=== PATIENT | female | born 1955 | race Asian ===

== ENCOUNTER → 2017-05-11 | Outpatient (CLI) | END | disposition home or self-care (01) ==

== ENCOUNTER 2018-06-02 19:42 | Emergency (ER) | payer BC ==
[~2018-06-02] VITALS: Ht 152.4 cm; Wt 79.1 kg
[~2018-06-02 19:42] MED LIST: LEVO25TA PO
[2018-06-02 19:47] VITALS: Ht 152.4 cm; Wt 79.1 kg
--- NOTE | 2018-06-02 21:49 | ERD ---
ER Documentation Chief Complaint Chief Complaint head lac head and neck pain s/p fall onto concrete 06/01at 1800 no KO HPI 62-year-old female complaining of headache and neck pain after a fall yesterday. Patient states she tripped and fell at home, and hit her forehead on the concrete floor. She has sustained a skin wound on her forehead. States that he has now stopped bleeding. Denies LOC or vomiting after the fall. Patient has history of thyroid disease, but denies any other past medical history. Patient is not anticoagulant or antiplatelet medications. ROS All systems reviewed and are negative except as per history of present illness. 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 06/02/18 Reported Medications Levothyroxine Sodium* (Synthroid*) 25 Mcg Tablet, 25 MCG PO DAILY 11/23/11 Allergies Allergies: Coded Allergies: Penicillins (Verified Allergy, 11/23/11) Sulfa(Sulfonamide Antibiotics) (Verified Allergy, 11/23/11) PMhx/Soc History of Surgery: No Anesthesia Reaction: No Hx Neurological Disorder: No Hx Respiratory Disorders: No Hx Cardiac Disorders: No Hx Psychiatric Problems: No Hx Miscellaneous Medical Probl: Yes (HYPOTHYROID ) Hx Alcohol Use: No Hx Substance Use: No Hx Tobacco Use: No Physical Exam Vitals Vital Signs Date Temp Pulse Resp B/P (MAP) Pulse Ox O2 O2 Flow FiO2 Time Delivery Rate 06/02/18 98.1 84 20 190/89 97 19:47 (122) Physical Exam General: Patient is well-developed. Awake, alert, and conversant, in no apparent distress Skin: Warm and dry Head: Normocephalic, epidermal skin abrasion on the forehead with oozing blood. Without palpable skull deformities Eyes: Pupils equal, round, and reactive to light. Extraocular movements intact. No periorbital ecchymosis or step-off Ears: Canals patent. Tympanic membranes are clear. No sawant sign. No hemotympanum Nose/face: Atraumatic. Facial bones are nontender to palpation and stable with attempts at manipulation Neck: Midline tenderness around C4-C5 levels, no, step-off, or deformity to firm palpation of posterior cervical spine. Trachea midline. Carotids equal. No masses. No JVD. Full range of motion of the neck without limitation or pain Chest: No surface trauma. Nontender without crepitus or deformity. No palpable subcutaneous air. Lungs have good tidal volume, lungs clear to auscultate bilaterally Heart: Regular rate and rhythm. No murmur, rub, or gallop Extremities: No surface trauma. Full range of motion without limitation or pain. Good strength in all extremities. Sensation to light touch intact. All peripheral pulses are intact and equal Neuro: Alert and oriented 4, GCS 15, cranial nerves II through XII intact. Motor and sensory exam is nonfocal. Reflexes are symmetric Results 24 hrs PROCEDURE: CT Brain without contrast. CLINICAL INDICATION: Trauma TECHNIQUE: A CT of the brain was performed on a multidetector CT scanner utilizing axial imaging from the skull base through the vertex without IV contrast. Multiplanar reformatted images were made. Images were reviewed on a PACS workstation. The CTDIvol is 40 mGy and the DLP is 634 mGycm. DICOM images are available. One or more of the following dose reduction techniques were utilized: 1.) Automated exposure control 2.) Adjustment of the mA +/- kV according to patient's size 3.) Use of iterative reconstruction technique. COMPARISON: None FINDINGS: There is no intracranial hemorrhage, mass effect, or midline shift. No extra- axial fluid collection is seen. There is mild to moderate age appropriate diffuse cerebral volume loss with sulcal and ventricular dilatation. Ventricles are in the midline and of normal configuration.. The density of the brain is normal, and the koch white matter differentiation appears well-preserved. The visualized paranasal sinuses and osseous structures are grossly unremarkable. No skull fracture is visualized. There is frontal scalp swelling. IMPRESSION: Frontal scalp swelling. No intracranial hemorrhage or skull fracture. Mild age-appropriate atrophy. No intracranial mass or evidence of acute transcortical infarct. .Lucas Workman MD, Date Time Electronically viewed and signed by .Lucas Workman MD, MD on 06/02/2018 22:02 .A/ CC: HARIKA PARDO [employer]ED SOFTWARE TEST ENGINEER PROCEDURE: CT Cervical Spine without contrast. CLINICAL INDICATION: Trauma TECHNIQUE: A CT of the cervical spine was performed on a multidetector CT scanner utilizing thin section axial images from the skull base through the thoracic inlet. Sagittal and coronal reformatted images were made. The CTDIvol is 22 mGy and the DLP is 419 mGycm. DICOM images are available. One or more of the following dose reduction techniques were utilized: 1.) Automated exposure control 2.) Adjustment of the mA +/- kV according to patient's size 3.) Use of iterative reconstruction technique. COMPARISON: No prior studies are available for comparison. FINDINGS: There is loss of normal lordosis with kyphotic deformity centered on C4. No step-off or prevertebral soft tissue swelling is seen. Vertebral bodies have normal height. There is no fracture. There is mild to moderate narrowing of C3- C4 and C4-C5 with moderate narrowing of C5-C6 and C6-C7 discs. There is a left paracentral posterior ridging at C3-C4 measuring 3 mm in AP diameter with compromise of the neural foramen. There is concentric disc ridge at C4-C5 measuring 3 mm in AP diameter. No central stenosis is present. There is bilateral foraminal stenosis. There is concentric disc ridge at C5-C6 measuring 3 mm in AP diameter with bilateral foraminal stenosis. There is right C6-C7 foraminal stenosis. Pedicles and posterior elements are intact with no fracture. IMPRESSION: No fracture or step-off. Loss of normal lordosis with kyphosis cervical spine compatible with muscular spasm or sprain. Multilevel degenerative disc disease. Note disc herniation. Multilevel ridging with bilateral foraminal stenosis as detailed above. .Lucas Workman MD, MD Date Time Electronically viewed and signed by .Lucas Workman MD, MD on 06/02/2018 22:05 .A/ CC: HARIKA PARDO [employer]ED SOFTWARE TEST ENGINEER Procedures/MDM Well-appearing 62-year-old female presented to ED after fall and head injury. CT of the brain and C-spine is obtained. No sign of intracranial hemorrhage, or acute C-spine fracture or subluxation is noted. Degenerative changes of the C- spine is noted CT. Patient also sustained a skin abrasion from the fall. The wound is not suitable for suturing, Surgicel dressing is applied to control the bleeding. Patient appears well, stable for discharge and outpatient management. Medical decision making shared with patient and family. Education provided to patient and family. Patient and family expressed understanding of the plan. Medications on discharge: Tylenol. Follow-up: Primary care provider in 2-3 days or return to ED if worse. Disclaimer: Inadvertent spelling and grammatical errors are likely due to EHR/dictation software use and do not reflect on the overall quality of patient care. Also, please note that the electronic time recorded on this note does not necessarily reflect the actual time of the patient encounter. Departure Diagnosis: Primary Impression: Fall with no significant injury Encounter type: initial encounter Qualified Codes: W19.XXXA - Unspecified fall, initial encounter Additional Impressions: Abrasion Neck pain Condition: Stable HARIKA PARDO NP Jun 02, 2018 21:49
[2018-06-02] MEDS ORDERED: ACET500C5 PO (22:54)
[2018-06-02 22:58] VITALS: BP 155/82; PULSE 72; RESP 20
== END 2018-06-02 22:58 | disposition home or self-care (01) ==
LOC: E/R 19:42
DX: S00.81XA Abrasion of other part of head, initial encounter (principal); S19.9XXA Unspecified injury of neck, initial encounter; R40.2412 Glasgow coma scale score 13-15, at arrival to emergency department; E03.9 Hypothyroidism, unspecified; R51 Headache; W01.198A Fall on same level from slipping, tripping and stumbling with subsequent striking against other object, initial encounter; Y92.009 Unspecified place in unspecified non-institutional (private) residence as the place of occurrence of the external cause
CPT/HCPCS: 70450; 72125